=== PATIENT | male | born 1970 | race Caucasian/White ===

== ENCOUNTER 2022-11-25 08:25 | Outpatient (REF) | payer OTHER, SELFPAY | END 2022-11-25 08:26 | disposition home or self-care (01) | LOC: HO.HOSX 08:25 | PROVIDERS: Visit Provider Physician Assistant | DX: Z13.89 Encounter for screening for other disorder (principal) ==

== ENCOUNTER 2023-06-16 07:33 | Outpatient (REF) | payer OTHER, SELFPAY | END 2023-06-16 07:34 | disposition home or self-care (01) | LOC: HO.HOSX 07:33 | PROVIDERS: Visit Provider Orthopaedic Surgery | DX: Z13.89 Encounter for screening for other disorder (principal) ==

== ENCOUNTER 2023-06-30 16:44 | Outpatient (REF) | payer OTHER, SELFPAY | END 2023-06-30 16:45 | disposition home or self-care (01) | LOC: HO.HOSX 16:44 | PROVIDERS: Visit Provider Orthopaedic Surgery | DX: Z13.89 Encounter for screening for other disorder (principal) ==

== ENCOUNTER 2023-07-06 11:39 | Outpatient (REF) | payer OTHER, SELFPAY | END 2023-07-06 11:40 | disposition home or self-care (01) | LOC: HO.HOSX 11:39 | PROVIDERS: Visit Provider Orthopaedic Surgery | DX: Z13.89 Encounter for screening for other disorder (principal) ==